=== PATIENT | male | born 1950 | race Caucasian/White ===

== ENCOUNTER 2016-11-05 10:49 | Emergency (ER) | payer MEDICARE ==
[~2016-11-05] VITALS: Ht 185.4 cm; Wt 83.9 kg
[2016-11-05] MEDS ORDERED: ONDANSETRON PF 4 MG/2 ML VIAL. IV ONE (11:30)
[2016-11-05] MEDS ORDERED: IV NORMAL SALINE 1000ML BAG 1,000 ML IV ONE (11:30)
[2016-11-05] MEDS ORDERED: KETOROLAC TROMETHAMINE 30 MG/ML INJ. IV ONE (11:30)
--- NOTE | 2016-11-05 11:44 | PHYS DOC ---
Past Medical History Past Medical History: CAD, High Cholesterol, Kidney Stone, Urolithiasis Additional Past Surgical Histo: HERNIA REPAIR >30 Alcohol Use: Rarely Drug Use: None Adult General Chief Complaint Chief Complaint: FLANK PAIN HPI HPI Patient is a 66 year old male who presents with right flank pain onset this morning sudden severe is no radiation, consistent with prior kidney stones. Some nausea no vomiting no chest pain or shortness of breath no fever chills no dysuria or hematuria. Never saw a urologist. Review of Systems Review of Systems Constitutional: Denies fever or chills [] Eyes: Denies change in visual acuity, redness, or eye pain [] HENT: Denies nasal congestion or sore throat [] Respiratory: Denies cough or shortness of breath [] Cardiovascular: No additional information not addressed in HPI [] GI: Denies abdominal pain, nausea, vomiting, bloody stools or diarrhea [] : Denies dysuria or hematuria [] Musculoskeletal: Denies back pain or joint pain [] Integument: Denies rash or skin lesions [] Neurologic: Denies headache, focal weakness or sensory changes [] Endocrine: Denies polyuria or polydipsia All review systems are negative except as mentioned in the history of present illness. [] Current Medications Current Medications Current Medications Medications (Trade) Dose Ordered Sig/Alanna Start Time Stop Time Status Last Admin Dose Admin Ketorolac Tromethamine (Toradol) 30 mg 1X ONCE 11/05/16 11:30 11/05/16 11:31 DC 11/05/16 11:30 30 MG Ondansetron HCl (Zofran) 4 mg 1X ONCE 11/05/16 11:30 11/05/16 11:31 DC Sodium Chloride 1,000 ml @ 1,000 mls/hr 1X ONCE 11/05/16 11:30 11/05/16 12:29 DC 11/05/16 11:30 1,000 MLS/HR Allergies Allergies Allergies Coded Allergies Type Severity Reaction Last Updated Verified No Known Drug Allergies 11/05/16 No Physical Exam Physical Exam Constitutional: Well developed, well nourished, no acute distress, non-toxic appearance. [] HENT: Normocephalic, atraumatic, bilateral external ears normal, oropharynx moist, no oral exudates, nose normal. [] Eyes: PERRLA, EOMI, conjunctiva normal, no discharge. [] Neck: Normal range of motion, no tenderness, supple, no stridor. [] Cardiovascular:Heart rate regular rhythm, no murmur [] Lungs & Thorax: Bilateral breath sounds clear to auscultation [] Abdomen: Bowel sounds normal, soft, no tenderness, no masses, no pulsatile masses. [] Skin: Warm, dry, no erythema, no rash. [] Back: No tenderness, no CVA tenderness. [] Extremities: No tenderness, no cyanosis, no clubbing, ROM intact, no edema. [] Neurologic: Alert and oriented X 3, normal motor function, normal sensory function, no focal deficits noted. Psychologic: Affect normal, judgement normal, mood normal. [] Current Patient Data Vital Signs Vital Signs Date Time Temp Pulse Resp B/P (MAP) Pulse Ox O2 Delivery O2 Flow Rate FiO2 11/05/16 12:42 59 18 132/73 (92) 99 Room Air 11/05/16 11:05 98.9 98.9 Lab Values Laboratory Tests Test 11/05/16 11:30 11/05/16 12:25 Sodium Level 136 mmol/L (136-145) Potassium Level 5.0 mmol/L (3.5-5.1) Chloride Level 102 mmol/L (98-107) Carbon Dioxide Level 26 mmol/L (21-32) Anion Gap 8 (6-14) Blood Urea Nitrogen 27 mg/dL (8-26) H Creatinine 1.0 mg/dL (0.7-1.3) Estimated GFR (Cockcroft-Gault) 74.3 Glucose Level 122 mg/dL (70-99) H Calcium Level 9.2 mg/dL (8.5-10.1) Urine Collection Type Unknown Urine Color Yellow Urine Clarity Clear Urine pH 6.5 Urine Specific [place] 1.025 Urine Protein Negative mg/dL (NEG-TRACE) Urine Glucose (UA) Negative mg/dL (NEG) Urine Ketones (Stick) Negative mg/dL (NEG) Urine Blood Negative (NEG) Urine Nitrite Negative (NEG) Urine Bilirubin Negative (NEG) Urine Urobilinogen Dipstick 1.0 mg/dL (0.2 mg/dL) Urine Leukocyte Esterase Moderate (NEG) Urine RBC Occ /HPF (0-2) Urine WBC 11-20 /HPF (0-4) Urine Squamous Epithelial Cells Occ /LPF Urine Bacteria Few /HPF (0-FEW) Urine Mucus Mod /LPF Laboratory Tests 11/05/16 11:30 EKG EKG [] Radiology/Procedures Radiology/Procedures CT abdomen and pelvis without: Shows a 7 mm calcification in the right renal pelvis no hydronephrosis per radiology report [] Course & Med Decision Making Course & Med Decision Making Pertinent Labs and Imaging studies reviewed. (See chart for details) We'll obtain a CT abdomen and pelvis, basic labs and initiate symptomatic treatment. Patient's pain was improved, CT scan showed stone in the right renal pelvis but no hydroureter or nephrolithiasis. We'll recommend follow-up with a PCP for referral to urology. [Urinalysis was equivocal for UTI we will treat.] Dragon Disclaimer Dragon Disclaimer This electronic medical record was generated, in whole or in part, using a voice recognition dictation system. Departure Departure Impression: Primary Impression: Right kidney stone Additional Impression: UTI (urinary tract infection) Disposition: HOME, SELF-CARE Condition: IMPROVED Patient Instructions: Kidney Stones, [id number] Additional Instructions: Please keep your appointment with your urologist Scripts Nitrofurantoin Monohyd/M-Cryst (MACROBID [id number] MG CAPSULE) 100 Mg Capsule 1 CAP PO BID, #14 CAP Prov: OSBALDO THOMAS MD 11/05/16 Ondansetron (ZOFRAN ODT) 4 Mg Tab.rapdis 1 TAB SL Q8HRS for NAUSEA, #8 TAB Prov: OSBALDO THOMAS MD 11/05/16 Oxycodone/Apap 5-325 (PERCOCET 5-325 MG TABLET) 1 Each Tablet 1 TAB PO PRN Q6HRS Y for PAIN, #10 TAB 0 Refills Prov: OSBALDO THOMAS MD 11/05/16 Problem Qualifiers OSBALDO THOMAS MD Nov 05, 2016 11:44
[2016-11-05 11:48] LABS: CALCIUM 9.2 mg/dL (8.5-10.1); GFR 74.3
--- NOTE | 2016-11-05 12:28 | RAD ---
CT abdomen/pelvis without contrast 11/05/2016 1147 hours Indication: Right flank pain with history of stones Comparison: None available Technique: Multiple axial CT images of the abdomen and pelvis were obtained without contrast. Coronal and sagittal reformats are provided. Findings: Lung bases are clear. Heart size is within normal limits. Limited evaluation of the solid abdominal viscera due to the lack of intravenous contrast. The liver enhances is normal. The spleen is normal. Bilateral adrenal glands are normal. The gallbladder is present without adjacent inflammatory changes. Pancreas is normal in appearance. Moderate atherosclerotic calcification of the abdominal aorta is present. There is infrarenal abdominal aortic ectasia measuring 24 x 26 mm. There are no enlarged lymph nodes in the abdomen or pelvis. There is no free intraperitoneal air. No free fluid within the abdomen or pelvis. There is a 7 mm calculus in the right renal pelvis. There is a small right extrarenal pelvis. Mild prominence of the proximal right ureter. No ureteral or bladder calculi are identified. There is no hydronephrosis. 18 mm cyst is identified in the posterior midpole of the left kidney. No contour deforming renal mass. Right renal vascular calcifications are present as well. Small and large bowel are normal in caliber. Appendix is not definitively visualized, however there are no inflammatory changes in the right lower quadrant. No pericolonic inflammatory changes are present. The urinary bladder is normal in appearance. Calcifications are identified inferior to the urinary bladder (extrinsic to the bladder wall) No suspicious osseous lesions are identified. Mild to moderate multilevel degenerative disc disease of the thoracolumbar spine. Impression: 1. There is a 7 mm calculus in the right renal pelvis. There is no associated hydronephrosis. This may cause intermittent obstruction. No additional calculi are identified in the ureters or urinary bladder. 2. Infrarenal abdominal aortic ectasia measuring 24 x 26 mm. PQRS Compliance Statement: One or more of the following individualized dose reduction techniques were utilized for this examination: 1. Automated exposure control 2. Adjustment of the mA and/or kV according to patient size 3. Use of iterative reconstruction technique
[2016-11-05 12:37] LABS: BILIRUBIN,URINE NEGATIVE (NEG); GLUCOSE,URINE NEGATIVE (NEG); NITRITE,URINE NEGATIVE (NEG); PH,URINE 6.5; PROTEIN,URINE NEGATIVE (NEG-TRACE)
[2016-11-05] MEDS ORDERED: ONDA4TAB10 SL (12:40)
[2016-11-05] MEDS ORDERED: OXYC-323 PO (12:40)
[2016-11-05 12:42] VITALS: BP 132/73
[2016-11-05 13:03] LABS: BACTERIA,URINE FEW /HPF (0-FEW); RBC,URINE OCC /HPF (0-2); SQUAMOUS EPITHELIAL CELL,UR OCC /LPF
[2016-11-05] MEDS ORDERED: NITR100C62 PO (13:20)
== END 2016-11-05 13:44 | disposition home or self-care (01) ==
LOC: ER 10:49
DX: N20.0 Calculus of kidney (principal); N39.0 Urinary tract infection, site not specified; E78.00 Pure hypercholesterolemia, unspecified; I25.10 Atherosclerotic heart disease of native coronary artery without angina pectoris; Z98.890 Other specified postprocedural states
CPT/HCPCS: 36415; 74176; 80048; 81001; 87086; 96361; 96374; 99285; J1885; J7030